=== PATIENT | female | born 1935 | race Caucasian/White ===

== ENCOUNTER 2017-05-15 19:38 | Emergency (ER) | payer MEDICARE, BC ==
[2017-05-16] MEDS ORDERED: Amoxicillin/Clavulanate TAB* 875 MG PO ONE
--- NOTE | 2017-05-16 00:04 | ED ---
Corey Hawkins [place], scribed for Manoj Hay MD on 05/16/17 at 0000 . Bite Injury/Animal - HPI Summary HPI Summary: Patient is a 82 y/o F who presents to the ED s/p cat bite to left wrist yesterday at 1200. She states that she knows the cat from the neighborhood, but it typically intimidates her cat. She states she grabbed him to move him when he bit her. She reports erythema and pain to affected wrist. Pt is unsure about the cats vaccination status. Pt reports allergy to Tetanus toxoid. - History of Current Complaint Chief Complaint: EDAnimalBite Stated Complaint: BIT BY CAT LT ARM Time Seen by Provider: 05/15/17 23:57 Hx Obtained From: Patient Onset of Injury: Happened days ago, Still Present Type of Bite: Animal Hx of Bite: Provoked by: - Grabbing. Has Animal Been Immunized?: Unknown Severity Initially: Moderate Severity Currently: Moderate Pain Intensity: 4 Pain Scale Used: 0-10 Numeric Character: Abrasion/Laceration Aggravating Factor(s): Nothing Alleviating Factor(s): Nothing Associated Signs And Symptoms: Positive: Negative - Allergies/Home Medications Allergies/Adverse Reactions: Allergies Allergy/AdvReac Type Severity Reaction Status Date / Time Bee Venom Allergy Anaphylatic Verified 05/15/17 19:50 Shock Tetanus Toxoid Allergy Unknown Verified 05/15/17 19:51 Reaction Details PMH/Surg Hx/FS Hx/Imm Hx Respiratory History: Denies: Hx Chronic Obstructive Pulmonary Disease (COPD) Musculoskeletal History: Reports: Hx Osteoporosis - Cancer History Hx Chemotherapy: No Hx Radiation Therapy: No Infectious Disease History: No Infectious Disease History: Denies: Traveled Outside the [place] in Last 30 Days - Family History Known Family History: Positive: Unknown - Pt does not know - father was killed at young age. - Social History Alcohol Use: Rare Substance Use Type: Reports: None Hx Tobacco Use: No Smoking Status (MU): Never Smoked Tobacco Review of Systems Negative: Fever Positive: Other - Bite muna to left wrist: erythema and pain. All Other Systems Reviewed And Are Negative: Yes Physical Exam Triage Information Reviewed: Yes Vital Signs On Initial Exam: Initial Vitals Temp Pulse Resp BP Pulse Ox 98.6 F 78 16 134/69 97 05/15/17 19:45 05/15/17 19:45 05/15/17 19:45 05/15/17 19:45 05/15/17 19:45 Vital Signs Reviewed: Yes Appearance: Positive: Well-Appearing, No Pain Distress Skin: Positive: Warm Head/Face: Positive: Normal Head/Face Inspection Eyes: Positive: ALEXSANDRA ENT: Positive: Hearing grossly normal Neck: Positive: Supple Respiratory/Lung Sounds: Positive: Clear to Auscultation, Breath Sounds Present Cardiovascular: Positive: RRR Abdomen Description: Positive: Nontender, Soft Bowel Sounds: Positive: Present Musculoskeletal: Positive: Other - palmar aspect rt wrist warm, erythematous, mildly swollen Neurological: Positive: Alert, Oriented to Person Place, Time Psychiatric: Positive: Affect/Mood Appropriate - Ione Coma Scale Coma Scale Total: 15 Diagnostics - Vital Signs Vital Signs Temp Pulse Resp BP Pulse Ox 05/15/17 23:49 98.6 F 65 18 131/76 99 05/15/17 22:25 98.6 F 64 20 102/74 100 05/15/17 21:20 98.0 F 68 16 133/70 97 05/15/17 19:45 98.6 F 78 16 134/69 97 - Laboratory Lab Statement: Any lab studies that have been ordered have been reviewed, and results considered in the medical decision making process. Bite Injury Course/Dx - Course Course Of Treatment: 82 y/o F presents s/p cat bite to left wrist yesterday at 1200. She states that she knows the cat from the neighborhood, but it typically intimidates her cat. She states she grabbed him to move him when he bit her. She reports erythema and pain to affected wrist. Pt is unsure about the cats vaccination status. She will be DCd with Augmentin. - Diagnoses Provider Diagnosis: Cat bite Discharge - Discharge Plan Condition: Stable Disposition: HOME Prescriptions: Amoxicillin/Clavulanate TAB* [Augmentin TAB 875*] 875 mg PO BID #14 tab Patient Education Materials: Animal Bite (ED) Referrals: Jeremy Walker MD [Primary Care Provider] - Additional Instructions: Please follow up with your primary care provider tomorrow. The documentation as recorded by the Corey gill Salem accurately reflects the service I personally performed and the decisions made by me, Manoj Hay MD.
[2017-05-16 00:44] VITALS: BP 140/81
== END 2017-05-16 00:43 | disposition home or self-care (01) ==
LOC: ED 19:38
DX: S61.552A Open bite of left wrist, initial encounter (principal); W55.01XA Bitten by cat, initial encounter; Y93.89 Activity, other specified; Y92.89 Other specified places as the place of occurrence of the external cause
CPT/HCPCS: 99282; A9270-GY